=== PATIENT | male | born 1965 | race Two or more races ===

== ENCOUNTER 2024-02-24 13:03 | Inpatient (IN) | payer OTHER ==
[~2024-02-24] VITALS: Ht 175.3 cm; Wt 113.4 kg
[2024-02-24] MEDS ORDERED: KETOROLAC TROMETHAMINE 60 MG VIAL IM STA (14:20)
[2024-02-24] MEDS ORDERED: KETOROLAC TROMETHAMINE 60 MG VIAL IM ONE (14:45)
[2024-02-24 14:54] LABS: HEMATOCRIT 35.2 % (39.0-48.0); HEMOGLOBIN 12.2 g/dL (13-16.00); MEAN CELL VOLUME 90.8 fL (80.0-100.00); MEAN CORPUSCULAR HEMOGLOBIN 31.5 pg (27.00-32.0); MEAN CORPUSCULAR HGB CONC 34.7 g/dl (32.0-36.0); PLATELET COUNT 219 K/uL (150-450); RED BLOOD COUNT 3.88 M/uL (4.00-6.00); RED CELL DISTRIBUTION WIDTH 13.4 % (11.5-14.5)
[2024-02-24 15:18] LABS: CALCIUM 9.2 mg/dL (8.5-10.1); CREATININE SERUM 0.92 mg/dL (0.70-1.30); GFR 84.2; POTASSIUM 3.84 mEq/L (3.5-5.1)
[2024-02-24 15:38] LABS: URINE APPEARANCE Turbid; URINE BILIRRUBIN Negative (NEGATIVE); URINE BLOOD Moderate; URINE COLOR Yellow; URINE GLUCOSE Negative (NEGATIVE); URINE LEUKOCYTE Large; URINE NITRATE Positive; URINE PROTEIN 30 (NEGATIVE); URINE UROBILINOGEN 0.2 E.U./dl
[2024-02-24 15:42] LABS: URINE EPITHELIAL CELLS 9.4 uL (0.0-38.8); URINE RBC 37.5 uL (0.0-20.8)
[2024-02-24 15:56] LABS: URINE BACTERIA > 9821.5 uL (0.0-1933)
[2024-02-24] MEDS ORDERED: 0.9 % SODIUM CHLORIDE 1,000 ML IV SCH (18:30)
[2024-02-24] MEDS ORDERED: FAMOTIDINE/PF 20 MG in 0.9 % SODIUM CHLORIDE 8 ML IV PUSH SCH (18:33)
[2024-02-24] MEDS ORDERED: CEFTRIAXONE SODIUM 2,000 MG in 0.9 % SODIUM CHLORIDE 100 ML IV SCH (18:33)
[2024-02-24] MEDS ORDERED: ACETAMINOPHEN 500 MG GEL..CAP PO PRN (18:45)
[2024-02-24] MEDS ORDERED: CEFTRIAXONE SODIUM 2,000 MG VIAL ONE (19:07)
[2024-02-24] MEDS ORDERED: FAMOTIDINE/PF 20 MG/2 ML VIAL ONE (19:07)
[2024-02-24 19:48] LABS: INR 1.31; PARTIAL THROMBOPLASTIN TIME 30.7 SECONDS (22.0-34.0); PROTHROMBIN TIME 13.5 SECONDS (9.0-11.5)
[2024-02-24] MEDS ORDERED: KETOROLAC TROMETHAMINE 30 MG VIAL ONE (20:36)
[2024-02-24] MEDS ORDERED: KETOROLAC TROMETHAMINE 15 MG VIAL IU SCH (21:00)
[2024-02-25] MEDS ORDERED: KETOROLAC TROMETHAMINE 30 MG VIAL IV SCH (13:00)
[2024-02-26 06:34] LABS: HEMATOCRIT 31.9 % (39.0-48.0); HEMOGLOBIN 10.9 g/dL (13-16.00); MEAN CELL VOLUME 90.6 fL (80.0-100.00); MEAN CORPUSCULAR HEMOGLOBIN 31.1 pg (27.00-32.0); MEAN CORPUSCULAR HGB CONC 34.3 g/dl (32.0-36.0); PLATELET COUNT 299 K/uL (150-450); RED BLOOD COUNT 3.52 M/uL (4.00-6.00)
[2024-02-26 06:37] LABS: ALBUMIN 2.7 gm/dL (3.4-5.0); BILIRUBIN TOTAL 0.24 mg/dL (0.3-1.2); CALCIUM 8.4 mg/dL (8.5-10.1); CREATININE SERUM 0.74 mg/dL (0.70-1.30); GFR 108.26; GLOBULINA 3.2 G/DL (2.4-3.5); MAGNESIUM 2.3 mg/dL (1.8-2.4); PHOSPHOROUS 3.8 mg/dL (2.5-4.9); POTASSIUM 4.37 mEq/L (3.5-5.1); TOTAL PROTEIN 5.9 gm/dL (6.4-8.2)
[2024-02-26] MEDS ORDERED: FAMOTIDINE/PF 20 MG/2 ML VIAL ONE (09:21)
[2024-02-26] MEDS ORDERED: MEROPENEM 500 MG/VIAL VIAL IV SCH (14:00)
[2024-02-27] MEDS ORDERED: SOD FERRIC GLUC COMPLX/SUCROSE 125 MG in 0.9 % SODIUM CHLORIDE 100 ML IV SCH (00:49)
[2024-02-27] MEDS ORDERED: VITAMIN B COMPLEX 1 EACH PO SCH (00:49)
[2024-02-27] MEDS ORDERED: Cyanocobalamin/Mecobalamin 1 TAB.SL SL SCH (00:50)
[2024-02-27] MEDS ORDERED: SOD FERRIC GLUC COMPLX/SUCROSE 62.5 MG in 0.9 % SODIUM CHLORIDE 50 ML IV SCH (09:00)
[2024-02-28 08:22] LABS: HEMATOCRIT 31.7 % (39.0-48.0); HEMOGLOBIN 10.8 g/dL (13-16.00); MEAN CELL VOLUME 89.5 fL (80.0-100.00); MEAN CORPUSCULAR HEMOGLOBIN 30.5 pg (27.00-32.0); PLATELET COUNT 314 K/uL (150-450); RED BLOOD COUNT 3.54 M/uL (4.00-6.00); RED CELL DISTRIBUTION WIDTH 13.5 % (11.5-14.5)
[2024-02-28 09:23] LABS: PH,URINE 5.5 (5.0-8.0); URINE APPEARANCE Clear; URINE BILIRRUBIN Negative (NEGATIVE); URINE BLOOD Small; URINE COLOR Yellow; URINE GLUCOSE Negative (NEGATIVE); URINE LEUKOCYTE Moderate; URINE NITRATE Negative; URINE PROTEIN Negative (NEGATIVE); URINE UROBILINOGEN 0.2 E.U./dl
[2024-02-28 09:28] LABS: URINE BACTERIA 25.1 uL (0.0-1933); URINE EPITHELIAL CELLS 5.8 uL (0.0-38.8); URINE WBC 319.8 uL (0.0-23.2)
[2024-02-28 09:28] LABS: ALBUMIN 2.5 gm/dL (3.4-5.0); BILIRUBIN TOTAL 0.2 mg/dL (0.3-1.2); CREATININE SERUM 0.74 mg/dL (0.70-1.30); GFR 108.26; GLOBULINA 3.3 G/DL (2.4-3.5); POTASSIUM 4.63 mEq/L (3.5-5.1); TOTAL PROTEIN 5.8 gm/dL (6.4-8.2)
[2024-02-28 09:29] LABS: C-REACTIVE PROTEIN 7.99 MG/DL (0.00-0.29)
[2024-02-29] MEDS ORDERED: TRAMADOL HCL 50 MG TABLET PO PRN (17:30)
[2024-03-01] MEDS ORDERED: VANCOMYCIN HCL 5 MG/ML REDILUIDO IV NR (18:00)
[2024-03-02 07:30] LABS: HEMATOCRIT 32.6 % (39.0-48.0); HEMOGLOBIN 11.2 g/dL (13-16.00); MEAN CELL VOLUME 90.9 fL (80.0-100.00); MEAN CORPUSCULAR HEMOGLOBIN 31.1 pg (27.00-32.0); MEAN CORPUSCULAR HGB CONC 34.2 g/dl (32.0-36.0); PLATELET COUNT 344 K/uL (150-450); RED BLOOD COUNT 3.59 M/uL (4.00-6.00); RED CELL DISTRIBUTION WIDTH 13.2 % (11.5-14.5)
[2024-03-02 08:08] LABS: ALBUMIN 2.7 gm/dL (3.4-5.0); BILIRUBIN TOTAL 0.31 mg/dL (0.3-1.2); CREATININE SERUM 0.76 mg/dL (0.70-1.30); GFR 104.98; GLOBULINA 3.5 G/DL (2.4-3.5); MAGNESIUM 2.5 mg/dL (1.8-2.4); PHOSPHOROUS 3.9 mg/dL (2.5-4.9); TOTAL PROTEIN 6.2 gm/dL (6.4-8.2)
[2024-03-02] MEDS ORDERED: KETOROLAC TROMETHAMINE 30 MG VIAL IV PRN (20:15)
== END 2024-03-03 20:15 | DRG 872 ==
LOC: ER 13:04 → MEDI 19:02 → MEDJ 03-03 10:34
PROVIDERS: General Practice; Internal Medicine Infectious Disease; ADMIT Internal Medicine; ATTEND Internal Medicine
PROC: BV44ZZZ Ultrasonography of Scrotum (ICD-10-PCS; 2024-02-24)
PROC: B54NZZZ Ultrasonography of Left Upper Extremity Veins (ICD-10-PCS; 2024-03-01)
PROC: 02HV33Z Insertion of Infusion Device into Superior Vena Cava, Percutaneous Approach (ICD-10-PCS; principal; 2024-03-03)
DX: A41.9 Sepsis, unspecified organism (principal); N39.0 Urinary tract infection, site not specified; Z16.12 Extended spectrum beta lactamase (ESBL) resistance; N45.1 Epididymitis; J44.9 Chronic obstructive pulmonary disease, unspecified; C61 Malignant neoplasm of prostate; B96.20 Unspecified Escherichia coli [E. coli] as the cause of diseases classified elsewhere